=== PATIENT | male | born 1995 | race African-American/Black ===

== ENCOUNTER 2017-05-15 15:21 | Emergency (ER) | payer OTHER ==
[~2017-05-15] VITALS: Ht 180.3 cm; Wt 71.8 kg
[2017-05-15 15:21] VITALS: BP 147/78
--- NOTE | 2017-05-15 15:52 | REP ---
Clinical: Trauma. Technique: AP, lateral, bilateral oblique views of the right ankle. Findings: Moderate lateral soft tissue swelling is appreciated consistent with inversion injury. A well corticated bony fragment is identified inferior to the fibular head likely representing sequelae of old fracture and less likely acute fracture fragment. Ankle mortise and medial malleolus appear intact and normal. No subcutaneous emphysema or radiodense foreign body. Impression: 1. Moderate lateral swelling consist with inversion injury. 2. Corticated bony fragment at the lateral malleolus likely represents old injury and less likely acute fracture. 3. No further acute fracture or dislocation identified. Signed by Santosh Casanova MD 05/15/2017 03:43 P
== END 2017-05-15 16:46 | disposition home or self-care (01) ==
LOC: M ED 15:21
DX: S93.401A Sprain of unspecified ligament of right ankle, initial encounter (principal); X50.9XXA Other and unspecified overexertion or strenuous movements or postures, initial encounter; Y93.89 Activity, other specified; Y92.89 Other specified places as the place of occurrence of the external cause; Y99.8 Other external cause status